=== PATIENT | female | born 1965 | race Caucasian/White ===

== ENCOUNTER 2018-10-23 10:35 | Emergency (ER) | payer OTHER ==
[~2018-10-23] VITALS: Ht 160 cm; Wt 88.6 kg
[2018-10-23] MEDS ORDERED: ATOR1TAB19 PO (10:45)
[2018-10-23] MEDS ORDERED: METF750T PO (10:45)
[2018-10-23] MEDS ORDERED: ENAL20TA PO (10:45)
[2018-10-23] MEDS ORDERED: TOPI25TA10 PO (10:45)
[2018-10-23] MEDS ORDERED: CITA40TA4 PO (10:45)
[2018-10-23] MEDS ORDERED: diphenhydrAMINE INJ 50MG/ML VIAL (J1200) IV STA (11:25)
[2018-10-23] MEDS ORDERED: METOCLOPRAMIDE INJ 10MG/2ML VIAL (J2765) IV ONE (11:30)
[2018-10-23] MEDS ORDERED: KETOROLAC 30 MG/ML VIAL (J1885) IV ONE (11:30)
[2018-10-23] MEDS ORDERED: NS 1,000 ML IV ONE (11:30)
[2018-10-23 11:56] LABS: BASO % 0.3 % (0.0-1.0); EOS # 0.1 10^3/uL (0.0-0.50); EOS % 0.7 % (0.0-3.0); HEMATOCRIT 41.8 % (36.0-47.0); LYMPH # 2.6 10^3/uL (1.5-4.5); LYMPH % 19.7 % (24.0-44.0); MEAN CORPUSCULAR HGB CONC 33.5 g/dl (32.0-36.5); MEAN CORPUSCULAR VOLUME 83.6 fl (80.0-96.0); MONO # 0.9 10^3/uL (0.0-0.8); MONO % 6.8 % (0.0-5.0); NEUTROPHILS # 9.4 10^3/uL (1.8-7.7); NEUTROPHILS % 72.3 % (36.0-66.0); PLATELET COUNT, AUTOMATED 325 10^3/uL (150-450)
[2018-10-23 12:22] LABS: BLOOD UREA NITROGEN 9 MG/DL (7-18); CALCIUM LEVEL 8.5 MG/DL (8.5-10.1); CARBON DIOXIDE LEVEL 28 MEQ/L (21-32); CHLORIDE LEVEL 101 MEQ/L (98-107); GLOMERULAR FILTRATION RATE > 60.0 (>51); GLUCOSE, FASTING 126 MG/DL (70-100); MAGNESIUM LEVEL 2.4 MG/DL (1.8-2.4); POTASSIUM SERUM 4.1 MEQ/L (3.5-5.1); SODIUM LEVEL 132 MEQ/L (136-145)
[2018-10-23 13:32] VITALS: BP 129/70
[2018-10-23] MEDS ORDERED: MAGN250T7 PO (18:13)
[2018-10-24] MEDS ORDERED: ASPI1TAB PO (17:51)
== END 2018-10-23 13:34 | disposition home or self-care (01) ==
LOC: M ED 10:35
DX: R51 Headache (principal); G89.29 Other chronic pain; E11.9 Type 2 diabetes mellitus without complications; F17.210 Nicotine dependence, cigarettes, uncomplicated; Z98.890 Other specified postprocedural states; Z79.899 Other long term (current) drug therapy; Z79.84 Long term (current) use of oral hypoglycemic drugs; Z88.8 Allergy status to other drugs, medicaments and biological substances
CPT/HCPCS: 80048; 83735; 85025; 96374; 96375; 99284; J1200; J1885; J2765

== ENCOUNTER 2018-10-23 15:32 | Inpatient (IN) | payer OTHER ==
[~2018-10-23] VITALS: Ht 162.6 cm; Wt 80.5 kg
[~2018-10-23 15:32] MED LIST: ATOR1TAB19 PO; CITA40TA4 PO; ENAL20TA PO; METF750T PO; TOPI25TA10 PO
[2018-10-23] MEDS ORDERED: NS 1,000 ML IV ONE (16:30)
[2018-10-23 17:04] LABS: BASO # 0.1 10^3/uL (0.0-0.2); BASO % 0.4 % (0.0-1.0); EOS # 0.2 10^3/uL (0.0-0.50); EOS % 1.2 % (0.0-3.0); HEMATOCRIT 41.6 % (36.0-47.0); LYMPH # 3.9 10^3/uL (1.5-4.5); LYMPH % 27.7 % (24.0-44.0); MEAN CORPUSCULAR HEMOGLOBIN 28.6 pg (27.0-33.0); MEAN CORPUSCULAR HGB CONC 33.7 g/dl (32.0-36.5); MEAN CORPUSCULAR VOLUME 84.9 fl (80.0-96.0); MONO # 1.1 10^3/uL (0.0-0.8); MONO % 7.9 % (0.0-5.0); NEUTROPHILS # 8.7 10^3/uL (1.8-7.7); NEUTROPHILS % 62.4 % (36.0-66.0); PLATELET COUNT, AUTOMATED 321 10^3/uL (150-450); WHITE BLOOD COUNT 13.9 10^3/uL (4.0-10.0)
[2018-10-23 17:18] LABS: INR 1.06; PROTHROMBIN TIME 13.9 SECONDS (12.1-14.4)
[2018-10-23 17:19] LABS: PARTIAL THROMBOPLASTIN TIME 29.8 SECONDS (25.4-37.6)
[2018-10-23 17:35] LABS: ALBUMIN 3.8 GM/DL (3.2-5.2); ALT/SGPT 17 U/L (12-78); BILIRUBIN,DIRECT 0.1 MG/DL (0.0-0.2); BILIRUBIN,TOTAL 0.4 MG/DL (0.2-1.0); BLOOD UREA NITROGEN 12 MG/DL (7-18); CALCIUM LEVEL 8.6 MG/DL (8.5-10.1); CARBON DIOXIDE LEVEL 25 MEQ/L (21-32); CHLORIDE LEVEL 103 MEQ/L (98-107); CHOLESTEROL LEVEL 160 MG/DL (<200); CHOLESTEROL RISK RATIO 2.962 (<5); CPK CREATINE PHOSPHOKINASE 66 U/L (26-192); CREATININE FOR GFR 0.71 MG/DL (0.55-1.30); GLOMERULAR FILTRATION RATE > 60.0 (>51); GLUCOSE, FASTING 131 MG/DL (70-100); HDL CHOLESTEROL 54 MG/DL (>40); LDL CHOLESTEROL 63 MG/DL (<100); MB/CK RELATIVE INDEX 1.97 (< OR =4); NON-HDL-C 106 MG/DL; POTASSIUM SERUM 3.9 MEQ/L (3.5-5.1); SODIUM LEVEL 135 MEQ/L (136-145); TRIGLYCERIDES LEVEL 213 MG/DL (<150); TROPONIN I < 0.02 NG/ML (< 0.10)
[2018-10-23] MEDS ORDERED: MAGN250T7 PO (18:13)
[2018-10-23] MEDS ORDERED: ONDANSETRON 4 MG TAB (S0181) PO PRN (19:15)
--- NOTE | 2018-10-23 19:39 | HPEPDOC ---
[facility] Medical History & Physical Date of Admission Oct 23, 2018 History and Physical CHIEF COMPLAINT: [ weakness ] HISTORY OF PRESENT ILLNESS: This is a 53 yo female with pmhx of prediabetes, htn and headache who presented to the ed for left sided weakness . Patient said she usually have headache and was taking ibuprofen in August when the headaches got worse. Her neurologist started her on topamax, which she said wasn't helping. She said her neurologist thinks the severe headaches are due to ibuprofen use. She hasn't taken ibupofen in about 1-2 weeks. Per patient her neurologist has been gradually increasing her topamax dose and it was double ( 200mg) on morning. Later at work she started having right sided weakness with headache. The weakness gradually improved over the next 2 days; however her headaches got progressively worse and today she started having generalized weakness, so her brought her to the ed. He said in the ed she received medicine for the headache and was discharged. When they got home, she started having left sided weakness and he thought she was having a stroke so he brought her back. Patient is also weak, with slow memory, slow speech and mental cloudiness. Of note patient was also taking prednisone taper and her last dose was Wednesday. She was taking it for possible brain inflammation per . She denied fever ,chills, chest pain, sob, photophobia, present headache, nausea vomiting, dizziness or muscles aches . Of note patient has a device in her back that she is not clear if it is metal or not. The surgery was done at [facility] they believe and her neurolo gist (Dr. Pendleton?) has been working on figuring out if it is metal or not so that she can get an MRI. REVIEW OF SYSTEMS: All 14 points ROS is negative except what's stated in HPI PHYSICAL EXAMINATION: GEN: no acute distress, acute delirious ( hypoactive) , does not follow commands well, eyes look sleepy, slow to process info and slow to speak HEENT : no lymphadenopathy, PERRLA , no oropharyngeal erythema or exudates CVS: Normal S1/s2, no murmurs, rubs or gallops, RESP: Lungs are clear to auscultation bilaterally, no crackles, wheezes or rhonchi Abd: soft, nontender, nondistended, + BS MSK: generalized weakness , unable to sit up without assistance and was not able to maintain a seated position Integumentary: no rash or bruises Neuro: AOAx3, left sided pronator drift and left leg weakness (drifted to bed before 5 sec), was difficult to assess cerebellar exam because patient was having difficulty following commands psych: normal mood, good judgement and cooperative PAST MEDICAL HISTORY: as per HPI PAST SURGICAL HISTORY: abd surgery - (for trauma when she was a child) wrist surgery fused vertebrae SOCIAL HISTORY: Tobacco use:[1ppd for 5 yrs ] ETOH: [denied ] Illicit drug use: [denied ] IV drug use: [denied ] FAMILY HISTORY: noncontributory ALLERGIES: Please see below. HOME MEDICATIONS: Please see below. LABORATORY DATA: See below. IMAGING: [ekg wnl, cxr and ct brain negative ] MICROBIOLOGY: Please see below. ASSESSMENT: acute neurologic symptoms - possibly topamax overdose vs cva PLAN: hold topamax f/u topamax level c/w ivf NS at 100cc/hr avoid narcotics neuro consult - Dr. Kong already contacted by ed f/u MRI/MR head and neck f/u echo and carotid doppler fall precaution call poison control who rec supportive care for now and lactic acid level hold metformin hold bp meds dvt ppx full code, from home, no svc Vital Signs Vital Signs Date Time Temp Pulse Resp B/P (MAP) Pulse Ox O2 Delivery O2 Flow Rate FiO2 10/23/18 18:00 78 122/60 (80) 96 Room Air 10/23/18 15:32 98.3 17 Laboratory Data Labs 24H Laboratory Tests 2 10/23/18 16:50: Immature Granulocyte % (Auto) 0.4, White Blood Count 13.9H, Red Blood Count 4.90, Hemoglobin 14.0, Hematocrit 41.6, Mean Corpuscular Volume 84.9, Mean Corpu scular Hemoglobin 28.6, Mean Corpuscular Hemoglobin Concent 33.7, Red Cell Distribution Width 13.7, Platelet Count 321, Neutrophils (%) (Auto) 62.4, Lymphocytes (%) (Auto) 27.7, Monocytes (%) (Auto) 7.9H, Eosinophils (%) (Auto) 1.2, Basophils (%) (Auto) 0.4, Neutrophils # (Auto) 8.7H, Lymphocytes # (Auto) 3.9, Monocytes # (Auto) 1.1H, Eosinophils # (Auto) 0.2, Basophils # (Auto) 0.1, Nucleated Red Blood Cells % (auto) 0.0, Prothrombin Time 13.9, Prothromb Time International Ratio 1.06, Activated Partial Thromboplast Time 29.8, Anion Gap 7L, Glomerular Filtration Rate > 60.0, Calcium Level 8.6, Aspartate Amino Transf (AST/SGOT) 10, Alanine Aminotransferase (ALT/SGPT) 17, Alkaline Phosphatase 92, Total Bilirubin 0.4, Direct Bilirubin 0.1, Total Creatine Kinase 66, Creatine Kinase MB 1.0, Creatine Kinase MB Relative Index 1.97, Troponin I < 0.02, Total Protein 7.0, Albumin 3.8, Albumin/Globulin Ratio 1.19, Triglycerides Level 213H, Total Cholesterol 160, LDL Cholesterol 63, Non-HDL Cholesterol (LDL + VLDL) 106, Total HDL Cholesterol 54, Cholesterol/HDL Ratio 2.962 CBC/BMP Laboratory Tests 10/23/18 16:50 Red Blood Count 4.90, Mean Corpuscular Volume 84.9, Mean Corpuscular Hemoglobin 28.6, Mean Corpuscular Hemoglobin Concent 33.7, Red Cell Distribution Width 13.7 , Neutrophils (%) (Auto) 62.4, Lymphocytes (%) (Auto) 27.7, Monocytes (%) (Auto) 7.9 H, Eosinophils (%) (Auto) 1.2, Basophils (%) (Auto) 0.4, Neutrophils # (Auto) 8.7 H, Lymphocytes # (Auto) 3.9, Monocytes # (Auto) 1.1 H, Eosinophils # (Auto) 0.2, Basophils # (Auto) 0.1 Home Medications Scheduled Atorvastatin Calcium (Atorvastatin Calcium) 10 Mg Tab, 10 MG PO QHS Citalopram Hydrobromide (Citalopram Hydrobromide) 40 Mg Tab, 40 MG PO DAILY Enalapril Maleate (Enalapril Maleate) 20 Mg Tab, 40 MG PO DAILY Magnesium (Magnesium) 250 Mg Tab, 250 MG PO DAILY Metformin Hydrochloride (Metformin HCl ER) 750 Mg Tab, 750 MG PO QHS Topiramate (Topiramate) 25 Mg Tab, 50 MG PO QHS Allergies Coded Allergies: Guaifenesin (Unverified Allergy, Unknown, HIVES, 10/23/18) LINDA MI MD Oct 23, 2018 19:39
--- NOTE | 2018-10-23 19:58 | ECGEPIP ---
Stationary ECG Study [facility] - ED Test Date: 2018-10-23 Pat Name: GEORGES FREIRE Department: Room: - Gender: F Manufacturing Advisor: VIGNESH : [id number] Requested By: LUCI Willard Order Number: [id number] Reading MD: Bruna Gutierrez Measurements Intervals Deep Gap Rate: 76 P: 46 DC: 144 QRS: 1 QRSD: 91 T: 14 QT: 373 QTc: 421 Interpretive Statements SINUS RHYTHM MINIMAL VOLTAGE CRITERIA FOR LVH, CONSIDER NORMAL VARIANT NONSPECIFIC ST T WAVE CHANGES NO OLD ECG FOR COMPARISON Electronically Signed On 10-23-2018 19:58:22 EST by Bruna Gutierrez
[2018-10-23] MEDS ORDERED: ATORVASTATIN 10 MG TAB PO SCH (21:00)
[2018-10-23 21:08] LABS: ETHYL ALCOHOL (ETHANOL) < 0.003 % (0.000-0.010); SALICYLATE LEVEL 3.1 MG/DL (5.0-30.0)
[2018-10-23] MEDS: SENOKOT S TAB PO SCH (23:06)
[2018-10-23] MEDS: HEPARIN SOD (PORCINE) 5000 UNITS/ML VIAL SC SCH (23:07)
[2018-10-23] MEDS: D5W/0.9% SODIUM CHLORIDE 1,000 ML IV SCH (23:15)
[2018-10-24] MEDS: ACETAMINOPHEN TAB 650MG DOSE (2X325MG) PO PRN ×3 (00:51→16:26)
[2018-10-24 04:42] VITALS: BP 132/63
[2018-10-24 05:00] VITALS: BP 133/80
[2018-10-24 05:07] LABS: BASO % 0.3 % (0.0-1.0); EOS # 0.2 10^3/uL (0.0-0.50); EOS % 1.3 % (0.0-3.0); HEMATOCRIT 36.8 % (36.0-47.0); LYMPH # 3.6 10^3/uL (1.5-4.5); LYMPH % 30.2 % (24.0-44.0); MEAN CORPUSCULAR HEMOGLOBIN 27.9 pg (27.0-33.0); MEAN CORPUSCULAR HGB CONC 32.1 g/dl (32.0-36.5); MONO % 8.2 % (0.0-5.0); NEUTROPHILS # 7.1 10^3/uL (1.8-7.7); NEUTROPHILS % 59.6 % (36.0-66.0); PLATELET COUNT, AUTOMATED 291 10^3/uL (150-450); RED BLOOD COUNT 4.23 10^6/uL (4.00-5.40); WHITE BLOOD COUNT 11.9 10^3/uL (4.0-10.0)
[2018-10-24] MEDS: D5W/0.9% SODIUM CHLORIDE 1,000 ML IV SCH (05:11)
[2018-10-24] MEDS: HEPARIN SOD (PORCINE) 5000 UNITS/ML VIAL SC SCH ×3 (05:11→21:09)
[2018-10-24 05:15] LABS: BLOOD UREA NITROGEN 11 MG/DL (7-18); CALCIUM LEVEL 7.7 MG/DL (8.5-10.1); CARBON DIOXIDE LEVEL 26 MEQ/L (21-32); CHLORIDE LEVEL 110 MEQ/L (98-107); CREATININE FOR GFR 0.63 MG/DL (0.55-1.30); GLOMERULAR FILTRATION RATE > 60.0 (>51); GLUCOSE, FASTING 119 MG/DL (70-100); MAGNESIUM LEVEL 2.2 MG/DL (1.8-2.4); POTASSIUM SERUM 4.1 MEQ/L (3.5-5.1); SODIUM LEVEL 140 MEQ/L (136-145)
[2018-10-24 05:33] LABS: HEMOGLOBIN 11.8 g/dl (12.0-15.5)
[2018-10-24] MEDS ORDERED: ISOVUE-370 76% 100ML VIAL (Q9967) As Ordered ONE (06:40)
--- NOTE | 2018-10-24 07:39 | REPVR ---
EXAM: CT Angiography Neck With Contrast EXAM DATE/TIME: 10/24/2018 6:49 AM CLINICAL HISTORY: 53 years old, female; Pain; Headache; Additional info: CVA TECHNIQUE: Axial computed tomographic angiography images of the neck with intravenous contrast using CT angiography protocol. All CT scans at this facility use at least one of these dose optimization techniques: automated exposure control; mA and/or kV adjustment per patient size (includes targeted exams where dose is matched to clinical indication); or iterative reconstruction. Coronal and sagittal reformatted images were created and reviewed. MIP reconstructed images were created and reviewed. CONTRAST: 100 ml of iso 370 administered intravenously. COMPARISON: No relevant prior studies available. FINDINGS: VASCULATURE: Right common carotid artery: Normal. No significant stenosis. No dissection or occlusion. Right internal carotid artery: Normal. Extracranial segment is patent with no significant stenosis. No dissection or occlusion. Right external carotid artery: Normal. No occlusion or significant stenosis. Right vertebral artery: Normal. No significant stenosis. No dissection or occlusion. Left common carotid artery: Normal. No significant stenosis. No dissection or occlusion. Left internal carotid artery: Normal. Extracranial segment is patent with no significant stenosis. No dissection or occlusion. Left external carotid artery: Normal. No occlusion or significant stenosis. Left vertebral artery: Normal. No significant stenosis. No dissection or occlusion. NECK: Bones/joints: No acute fracture. Soft tissues: Normal. No significant soft tissue swelling. IMPRESSION: No acute findings. COMMENT: Reference per NASCET criteria for degree of stenosis: Mild: <50% stenosis. Moderate: 50-69% stenosis. Severe: 70-94% stenosis. Near occlusion: 95-99% stenosis. The Electronically signed by: Feliciano Su On 10/24/2018 07:39:16 AM
--- NOTE | 2018-10-24 07:48 | REPVR ---
EXAM: CT Angiography Head With Contrast EXAM DATE/TIME: 10/24/2018 6:49 AM CLINICAL HISTORY: 53 years old, female; Pain; Headache; Additional info: CVA TECHNIQUE: Axial computed tomographic angiography images of the head with intravenous contrast using CT angiography protocol. All CT scans at this facility use at least one of these dose optimization techniques: automated exposure control; mA and/or kV adjustment per patient size (includes targeted exams where dose is matched to clinical indication); or iterative reconstruction. Coronal and sagittal reformatted images were created and reviewed. MIP and 3D reconstructed images were created and reviewed. CONTRAST: 100 ml of iso 370 administered intravenously. COMPARISON: CT Head without contrast 10/23/2018 3:49 PM FINDINGS: Right internal carotid artery: Unremarkable. Intracranial segment is patent with no significant stenosis. No aneurysm. Right anterior cerebral artery: Unremarkable. No occlusion or significant stenosis. No aneurysm. Right middle cerebral artery: Unremarkable. No occlusion or significant stenosis. No aneurysm. Right posterior cerebral artery: Unremarkable. No occlusion or significant stenosis. No aneurysm. Right vertebral artery: Unremarkable. No occlusion or significant stenosis. No aneurysm. Left internal carotid artery: Unremarkable. Intracranial segment is patent with no significant stenosis. No aneurysm. Left anterior cerebral artery: There is diminutive flow in the A1 segment of the left MARVA. There is flow in the distal branches of the left MARVA. Left middle cerebral artery: The M1 segment of the left MCA is irregular. Left posterior cerebral artery: Unremarkable. No occlusion or significant stenosis. No aneurysm. Left vertebral artery: Unremarkable. No occlusion or significant stenosis. No aneurysm. Basilar artery: Unremarkable. No occlusion or significant stenosis. No aneurysm. IMPRESSION: Diminutive flow in the A1 segment of the left MARVA which could be congenital or due to occlusive disease. Flow is seen in the distal branches. Irregular beaded appearance of the M1 segment of the left MCA. The differential diagnosis of beaded appearance includes vasculitis, reversible cerebral vasoconstriction syndrome (RCVS), fibromuscular dysplasia and polyarthritis nodosa. Correlation with MR angiogram or cerebral DSA may be helpful. Electronically signed by: Feliciano Su On 10/24/2018 07:48:00 AM
[2018-10-24 08:00] VITALS: BP 135/77
[2018-10-24 08:19] LABS: AMPHETAMINES LEVEL URINE NEGATIVE (NEGATIVE); BARBITURATES URINE NEGATIVE (NEGATIVE); BENZODIAZEPINES URINE NEGATIVE (NEGATIVE); CANNABINOIDS URINE NEGATIVE (NEGATIVE); COCAINE METABOLITE URINE NEGATIVE (NEGATIVE); METHADONE URINE NEGATIVE (NEGATIVE); OPIATES URINE NEGATIVE (NEGATIVE); PHENCYCLIDINE URINE NEGATIVE (NEGATIVE)
[2018-10-24 08:51] LABS: CK-MB VALUE MASS < 1.0 NG/ML (<3.6); CPK CREATINE PHOSPHOKINASE 39 U/L (26-192); MB/CK RELATIVE INDEX 2.56 (< OR =4); TROPONIN I < 0.02 NG/ML (< 0.10)
[2018-10-24] MEDS: ASPIRIN 81 MG CHEW TABLET PO SCH (09:21)
[2018-10-24] MEDS: SENOKOT S TAB PO SCH ×2 (09:22→21:08)
--- NOTE | 2018-10-24 10:20 | REP ---
CT BRAIN WITHOUT CONTRAST: CT brain performed without IV contrast. There is minor atrophy. There is no midline shift or mass effect. Solitario-white differentiation is well maintained. There is no acute hemorrhage. There is no extra-axial fluid collection. Bone window examination is unremarkable. IMPRESSION: Negative noncontrast CT brain. Electronically Signed by Curtis Solitario MD 10/24/2018 10:42 P
--- NOTE | 2018-10-24 10:26 | REP ---
CHEST: Single view. There is no evidence of acute infiltrate. No pleural effusion is seen. The heart is normal in size. The mediastinal silhouette is unremarkable. The visualized osseous structures are intact. IMPRESSION: No acute pulmonary disease. Electronically Signed by Curtis Solitario MD 10/24/2018 10:48 P
[2018-10-24 12:00] VITALS: BP 153/97
[2018-10-24 16:00] VITALS: BP 161/92
[2018-10-24] MEDS ORDERED: methylPREDNISolone INJ 125 MG/2 ML VIAL (J2930) IV ONE (16:45)
[2018-10-24] MEDS ORDERED: methylPREDNISolone 1,000 MG, VIAL MATE ADAPTER 1 EACH in D5W 250 ML IV ONE (17:00)
--- NOTE | 2018-10-24 17:01 | REP ---
CT Head without contrast HISTORY: Focal deficit COMPARISON: 10/23/2018 A small area of decreased attenuation is present in the medial left parietal lobe. This represents an acute infarction. There is no intraparenchymal hemorrhage, mass or midline shift. The ventricular system is normal in appearance. There is no extra cerebral collection. There is no fracture. The visualized sinuses are clear. IMPRESSION: Small acute left parietal lobe infarction. Electronically Signed by Vamshi Franco MD 10/24/2018 04:53 P
--- NOTE | 2018-10-24 17:04 | DS.PDOC ---
Discharge Summary General Date of Admission Oct 23, 2018 at 19:01 Date of Discharge to be determined Specialist/Consultants Involve Dr. Bundy, neurology Discharge Summary PROCEDURES PERFORMED DURING STAY: [None]. DISCHARGE DIAGNOSES: 1. intermittent focal neurologic deficits 2. speech deficits 3. altered mental status SECONDARY DIAGNOSES 1. Prediabetes 2. HTN 3. Lower back pain s/p surgical intervention - [facility] COMPLICATIONS/CHIEF COMPLAINT: Generalized Weakness,Headache,Tia. HISTORY OF PRESENT ILLNESS: This is a 53 yo female with PMHx of prediabetes, HTN, headache and lower back pain s/p surgical intervention, who presented to the ED for left sided weakness. Her family at bedside state that she had been having intermittent focal deficits for the past 4-8 weeks, that have been worsening, initially starting with pins/needles and numbness in her extremities. Patient states she has been having headaches, and was taking ibuprofen in August when the headaches got worse. She was started on Topamax on 10/13/18, which she said still wasn't helping. Per patient her neurologist was gradually increasing her topamax dose and it was doubled (200mg) on 10/20/18. Around 10/21/18 she started having right sided weakness with headache. The weakness gradually improved over the next 2 days; however her headaches got progressively worse and today she started having generalized weakness, so her brought her to the ED. She was given Toradol 30mg IV, reglan 10mg IV, Benadryl 25mgIV and a 1L bolus of NS and discharged home. When they got home, she started having left sided weakness and he thought she was having a stroke so he brought her back. Patient complained of weakness, lethargy and difficulty with speech. Of note patient was also taking prednisone taper and her last dose was 10/20/18. She was taking it for possible brain inflammation per . She denied fever ,chills, chest pain, sob, photophobia, present headache, nausea vomiting, dizziness or muscles aches. HOSPITAL COURSE: Hospital day one, patient noted with very flat affect. She answers questions with one word answers with no additional information. She is unable to read a clock. Patient's family (, son) state this is a major change in her mentation. She was found to be a poor historian. states that she was seen at [facility] 3-5 days ago for weakness and focal deficits. Neurology was consulted for further assistance. CT angiography of the head sh owed irregular beaded appearance of the M1 segment of the left MCA, with differential including vasculitis. Recommendations by neurology for transfer for further diagnostics with conventional angiogram. [facility] was contacted, with no bed availability. [facility] contacted with no bed availability. [facility] accepted transfer to stroke unit, accepting MD Dr. Mirella Abdul. DISCHARGE MEDICATIONS: Please see below. ALLERGIES: Please see below. PHYSICAL EXAMINATION ON DISCHARGE: VITAL SIGNS: Please see below. GENERAL: NAD, sitting comfortably in chair, flat affect HEENT: NC/AT, EOMI, PERRL, edentulous NECK: supple CARDIOVASCULAR EXAMINATION: +S1S2, RRR RESPIRATORY EXAMINATION: CTA B/L ABDOMINAL EXAMINATION: soft, NT, +BS EXTREMITIES: no edema NEUROLOGICAL EXAMINATION: strength 5/5 throughout, sensation not clear if intact - patient confabulates answers PSYCHIATRIC EXAMINATION: flat affect, answers questions with one word answer, offers no additional information LABORATORY DATA: Please see below. ACTIVITY: [As tolerated]. DIET: carb consiste, 2 gram sodium DISCHARGE PLAN: Transfer to [facility] DISPOSITION: . ITEMS TO FOLLOWUP ON ON OUTPATIENT: 1. Further direction as per receiving facility. DISCHARGE CONDITION: [Stable]. TIME SPENT ON DISCHARGE: Greater than 30 minutes. ADDENDUM: [facility] initially contacted at 3pm and then again at 3:40pm for transfer, but was informed of no bed availability. [facility] returned call at 9pm as there was bed availability. Discussed case with Dr. Fischer, with recommendations including lumbar puncture and that transfer was not necessary. Vital Signs/I&Os Vital Signs Date Time Temp Pulse Resp B/P (MAP) Pulse Ox O2 Delivery O2 Flow Rate FiO2 10/24/18 05:00 69 18 133/80 (97) 96 10/24/18 04:42 97.5 10/23/18 18:00 Room Air I&O- Last 24 Hours up to 6 AM 10/24/18 06:00 Intake Total 1100 ml Output Total 0 ml Balance 1100 ml Laboratory Data Labs 24H Laboratory Tests 2 10/23/18 16:50: Immature Granulocyte % (Auto) 0.4, White Blood Count 13.9H, Red Blood Count 4.90, Hemoglobin 14.0, Hematocrit 41.6, Mean Corpuscular Volume 84.9, Mean Corpuscular Hemoglobin 28.6, Mean Corpuscular Hemoglobin Concent 33.7, Red Cell Distribution Width 13.7, Platelet Count 321, Neutrophils (%) (Auto) 62.4, Lymphocytes (%) (Auto) 27.7, Monocytes (%) (Auto) 7.9H, Eosinophils (%) (Auto) 1.2, Basophils (%) (Auto) 0.4, Neutrophils # (Auto) 8.7H, Lymphocytes # (Auto) 3.9, Monocytes # (Auto) 1.1H, Eosinophils # (Auto) 0.2, Basophils # (Auto) 0.1, Nucleated Red Blood Cells % (auto) 0.0, Prothrombin Time 13.9, Prothromb Time International Ratio 1.06, Activated Partial Thromboplast Time 29.8, Anion Gap 7L, Glomerular Filtration Rate > 60.0, Calcium Level 8.6, Aspartate Amino Transf (AST/SGOT) 10, Alanine Aminotransferase (ALT/SGPT) 17, Alkaline Phosphatase 92, Total Bilirubin 0.4, Direct Bilirubin 0.1, Total Creatine Kinase 66, Creatine Kinase MB 1.0, Creatine Kinase MB Relative Index 1.97, Troponin I < 0.02, Total Protein 7.0, Albumin 3.8, Albumin/Globulin Ratio 1.19, Triglycerides Level 213H, Total Cholesterol 160, LDL Cholesterol 63, Non-HDL Cholesterol (LDL + VLDL) 106, Total HDL Cholesterol 54, Cholesterol/HDL Ratio 2.962 10/23/18 18:25: Salicylates Level 3.1L, Acetaminophen Level 2.0L, Ethyl Alcohol Level < 0.003 10/23/18 18:31: 10/23/18 19:53: Lactic Acid Level 0.8 10/24/18 04:44: Immature Granulocyte % (Auto) 0.4, White Blood Count 11.9H, Red Blood Count 4.23, Hemoglobin 11.8#L, Hematocrit 36.8, Mean Corpuscular Volume 87.0, Mean Corpuscular Hemoglobin 27.9, Mean Corpuscular Hemoglobin Concent 32.1, Red Cell Distribution Width 14.2, Platelet Count 291, Neutrophils (%) (Auto) 59.6, Lymphocytes (%) (Auto) 30.2, Monocytes (%) (Auto) 8.2H, Eosinophils (%) (Auto) 1.3, Basophils (%) (Auto) 0.3, Neutrophils # (Auto) 7.1, Lymphocytes # (Auto) 3.6, Monocytes # (Auto) 1.0H, Eosinophils # (Auto) 0.2, Basophils # (Auto) 0.0, Nucleated Red Blood Cells % (auto) 0.0, Anion Gap 4L, Glomerular Filtration Rate > 60.0, Blood Urea Nitrogen 11, Creatinine 0.63, Sodium Level 140, Potassium Level 4.1, Chloride Level 110H, Carbon Dioxide Level 26, Calcium Level 7.7L, Total Creatine Kinase 39, Magnesium Level 2.2, Creatine Kinase MB < 1.0, Creatine Kinase MB Relative Index 2.56, Troponin I < 0.02 10/24/18 07:50: Urine Amphetamines Screen NEGATIVE, Urine Benzodiazepines Screen NEGATIVE, Urine Opiates Screen NEGATIVE, Urine Methadone Screen NEGATIVE, Urine Barbiturates Screen NEGATIVE, Urine Phencyclidine Screen NEGATIVE, Urine Cocaine Metabolite Screen NEGATIVE, Urine Cannabinoids Screen NEGATIVE CBC/BMP Laboratory Tests 10/23/18 16:50 Red Blood Count 4.90, Mean Corpuscular Volume 84.9, Mean Corpuscular Hemoglobin 28.6, Mean Corpuscular Hemoglobin Concent 33.7, Red Cell Distribution Width 13.7, Neutrophils (%) (Auto) 62.4, Lymphocytes (%) (Auto) 27.7, Monocytes (%) (Auto) 7.9 H, Eosinophils (%) (Auto) 1.2, Basophils (%) (Auto) 0.4, Neutrophils # (Auto) 8.7 H, Lymphocytes # (Auto) 3.9, Monocytes # (Auto) 1.1 H, Eosinophils # (Auto) 0.2, Basophils # (Auto) 0.1 10/24/18 04:44 Red Blood Count 4.23, Mean Corpuscular Volume 87.0, Mean Corpuscular Hemoglobin 27.9, Mean Corpuscular Hemoglobin Concent 32.1, Red Cell Distribution Width 14.2, Neutrophils (%) (Auto) 59.6, Lymphocytes (%) (Auto) 30.2, Monocytes (%) (Auto) 8.2 H, Eosinophils (%) (Auto) 1.3, Basophils (%) (Auto) 0.3, Neutrophils # (Auto) 7.1, Lymphocytes # (Auto) 3.6, Monocytes # (Auto) 1.0 H, Eosinophils # (Auto) 0.2, Basophils # (Auto) 0.0, Calcium Level 7.7 L, Total Creatine Kinase 39 Discharge Medications Scheduled Aspirin (Aspirin 81) 81 Mg Tab, 1 TAB PO DAILY for pain Atorvastatin Calcium (Atorvastatin Calcium) 10 Mg Tab, 10 MG PO QHS, (Reported) Citalopram Hydrobromide (Citalopram Hydrobromide) 40 Mg Tab, 40 MG PO DAILY, (Reported) Enalapril Maleate (Enalapril Maleate) 20 Mg Tab, 40 MG PO DAILY, (Reported) Magnesium (Magnesium) 250 Mg Tab, 250 MG PO DAILY, (Reported) Metformin Hydrochloride (Metformin HCl ER) 750 Mg Tab, 750 MG PO QHS, (Reported) Topiramate (Topiramate) 25 Mg Tab, 50 MG PO QHS, (Reported) Allergies Coded Allergies: Guaifenesin (Unverified Allergy, Unknown, HIVES, 10/23/18) CASTRO HARTMAN MD Oct 24, 2018 17:04
[2018-10-24 17:42] LABS: C REACTIVE PROTEIN QUANTITATIV 1.39 MG/DL (0.00-0.30)
[2018-10-24] MEDS ORDERED: ASPI1TAB PO (17:51)
[2018-10-24 18:15] LABS: ERYTHROCYTE SEDIMENTATION RATE 12 mm/hr (0-30)
[2018-10-24 18:23] LABS: LDH LACTATE DEHYDROGENASE 127 U/L (84-246)
[2018-10-24 20:00] VITALS: BP 147/75
[2018-10-24] MEDS: ATORVASTATIN 20 MG TAB PO SCH (21:09)
[2018-10-25] VITALS: BP 132/71
[2018-10-25 04:00] VITALS: BP 145/65
[2018-10-25 05:08] LABS: HEMATOCRIT 39.6 % (36.0-47.0); HEMOGLOBIN 13.2 g/dl (12.0-15.5); LYMPH # 0.7 10^3/uL (1.5-4.5); LYMPH % 13.4 % (24.0-44.0); MEAN CORPUSCULAR HEMOGLOBIN 28.6 pg (27.0-33.0); MEAN CORPUSCULAR HGB CONC 33.3 g/dl (32.0-36.5); MEAN CORPUSCULAR VOLUME 85.9 fl (80.0-96.0); MONO % 0.4 % (0.0-5.0); NEUTROPHILS # 4.5 10^3/uL (1.8-7.7); PLATELET COUNT, AUTOMATED 288 10^3/uL (150-450); RED BLOOD COUNT 4.61 10^6/uL (4.00-5.40); WHITE BLOOD COUNT 5.3 10^3/uL (4.0-10.0)
[2018-10-25] MEDS: HEPARIN SOD (PORCINE) 5000 UNITS/ML VIAL SC SCH ×3 (05:16→21:06)
[2018-10-25 05:22] LABS: BLOOD UREA NITROGEN 8 MG/DL (7-18); CALCIUM LEVEL 8.5 MG/DL (8.5-10.1); CARBON DIOXIDE LEVEL 26 MEQ/L (21-32); CHLORIDE LEVEL 106 MEQ/L (98-107); CREATININE FOR GFR 0.58 MG/DL (0.55-1.30); GLOMERULAR FILTRATION RATE > 60.0 (>51); GLUCOSE, FASTING 207 MG/DL (70-100); MAGNESIUM LEVEL 1.9 MG/DL (1.8-2.4); POTASSIUM SERUM 4.1 MEQ/L (3.5-5.1); SODIUM LEVEL 138 MEQ/L (136-145)
[2018-10-25 07:46] LABS: CRYOGLOBULINS NEGATIVE (NEGATIVE)
[2018-10-25 07:48] VITALS: BP 158/89
[2018-10-25] MEDS ORDERED: methylPREDNISolone 1,000 MG, VIAL MATE ADAPTER 1 EACH in D5W 250 ML IV ONE (09:00)
[2018-10-25] MEDS: SENOKOT S TAB PO SCH ×2 (09:00→20:18)
[2018-10-25] MEDS: ASPIRIN 81 MG CHEW TABLET PO SCH (10:17)
--- NOTE | 2018-10-25 11:30 | CR ---
DATE OF CONSULTATION: REASON FOR CONSULTATION: Altered mental status, possible stroke. The patient is a 53-year-old female with past medical history significant for hypertension, prediabetes, persistent headache, presenting to the emergency department for left-sided weakness. The patient had an initial head CT, which was negative, CT angiogram of the head was suspicious for left MCA beaded appearance, possible vasculitis. Cerebral angiogram was recommended. The patient was then attempted to be transferred to a local hospital for further care. The patient had a transient episode on 10/24/2018 at around 6:20 a.m. with difficulty speaking. The patient had a head CT repeated in the evening. The patient's head CT then showed left parietal acute ischemia. The patient is symptomatic with left upper extremity ataxia as well as hyperreflexia of the right upper and lower extremity. 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 Solu-Medrol 1 gram was provided. Vasculitic workup ESR was pending. ESR was found to be 11. The patient was recommended by [facility] for further receive the Solu-Medrol. The patient was to be transferred pending in bed. Dr. Margarito Fischer from [facility] recommended spinal tap to be completed for further evaluation for cause of stroke. The patient will remain on 81 mg aspirin, which was started after this admission. She will remain on statin therapy and systolic blood pressures will remain 140-180 for the next 72 hours. She will continue Solu-Medrol 1 gram daily for the next 5 days. The patient would ideally need a cerebral angiogram to confirm the presence of OPERATIONS GENERAL AGENT vasculitis. REVIEW OF SYSTEMS: 14-point review of systems is negative except as per HPI. The patient states that the language dysfunction has resolved. She notes that she continues to have difficulty using her left arm. PAST MEDICAL HISTORY: As per HPI. SOCIAL HISTORY: The patient smokes one pack of tobacco per day. She denies use of any alcohol, illicit drugs or IV drug use. PAST SURGICAL HISTORY Abdominal surgery. Wrist surgery. Fused vertebrae. The patient has a metallic device that prevents her from having 3 Georgina MRI scans FAMILY HISTORY: Noncontributory. ALLERGIES: 1. GUAIFENESIN. HOME MEDICATIONS: - atorvastatin 10 mg daily - citalopram 40 mg daily - enalapril 40 mg p.o. daily - magnesium 250 mg p.o. daily - metformin HCL 750 mg p.o. q.h.s. - topiramate 50 mg p.o. q.h.s. PHYSICAL EXAMINATION: Blood pressure is 132/63, pulse rate 70, respiratory rate is 18, temperature is 97.5 degrees Fahrenheit, oxygenation 95% on room air. The patient is awake, alert, oriented to person, place and time. Speech, language, comprehension, and repetition are intact without his dysarthria or aphasia presently. Sensation in V1, V2, V3 is intact to light touch. No facial asymmetry to activation. Palate elevates symmetrically. Tongue is midline. No weakness of sternocleidomastoids bilaterally. Hearing is subjectively equal to finger rub. Pronator drift is present on the left upper extremity. Strength testing reveals weakness in the left triceps. The patient has normal strength throughout the rest the body. The patient has hyperreflexia noted in the right upper and lower extremities, possible positive Babinski sign on the right, absent on the left. Sensory is intact to light touch in all four extremities. Coordination reveals mild ataxia [id number] of the left upper extremity. Gait deferred. ASSESSMENT: 53-year-old female with stroke, risk factors including prediabetes, hypertension, tobacco abuse with new findings of stroke at the left MCA superior distribution, left parietal lobe affected with symptoms of left upper extremity weakness as well. MRI would be ideal although the patient has hardware which is not compatible 3T MRI. 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 Recommendation by reading radiologist for conventional cerebral angiogram. The patient is to be transferred for a higher level of care to receive cerebral angiogram. Outside provider from [facility] neurological team has recommended IV Solu-Medrol 1 gram. The patient was recommended by Dr. Margarito Fischer at [facility] to consider doing a spinal tap first before concluding the diagnosis of vasculitis. If the patient cannot be transferred, consider MR angiogram to confirm vasculitic abnormalities. Continue aspirin 81 mg daily. Continue systolic blood 140-180 for the next 72 hours. Physical therapy/occupational therapy (PT/OT). Continue telemetry monitoring. Obtain echocardiogram. Complete vasculitic hypercoagulable workup. Complete lumbar puncture as per Dr. Fischer's recommendation from [facility]. [facility]
--- NOTE | 2018-10-25 12:19 | REP ---
CT Head without contrast HISTORY: Focal deficit COMPARISON: 10/24/2018 A small area of decreased attenuation is present in the medial left parietal lobe. This represents an acute infarction. There is no intraparenchymal hemorrhage, mass or midline shift. The ventricular system is normal in appearance. There is no extra cerebral collection. There is no fracture. The visualized sinuses are clear. IMPRESSION: Small acute left parietal lobe infarction unchanged compared to the previous study. Electronically Signed by Vamshi Franco MD 10/25/2018 12:11 P
[2018-10-25 12:35] VITALS: BP 183/86
--- NOTE | 2018-10-25 14:39 | ECHO ---
DATE OF PROCEDURE: 10/24/2018 AGE: 53 GENDER: Female. Height 64 inches Weight 178 pounds Body surface area 1.87 meters squared Location: Inpatient, intensive care unit (ICU) room 3205 REFERRING PHYSICIAN: Dr. Cole INDICATION: Transient ischemic attack -- question cardiac source. MEASUREMENTS: 2-D measurements: RV - 3.7 cm LV - 5.0 cm Septum 1.1 cm Posterior wall 1.1 cm Aortic root 3.9 cm LA - 3.7 cm Left ventricular ejection fraction: 70% DOPPLER MEASUREMENTS: AV - 2.0 meters per second LVOT - 1.28 meters per second LVOT diameter 1.9 cm MV E: 99, A: 116, E:A ratio 0.9 Early mitral deceleration time 261 milliseconds E/E prime ratio 14.8 PCWP 15.2 mmHg PV - 0.8 meters per second Pulmonary artery acceleration time 130 milliseconds RVSP 42 mmHg IVC - 1.3 cm COMMENTS: Normal sinus rhythm without intraventricular conduction disturbance. M-mode and two-dimensional echocardiography was performed with pulsed, continuous wave, color flow and tissue Doppler studies. Normal left ventricular size, wall thickness and hyperkinetic wall motion. Left atrium upper limits of normal with Doppler evidence of an impairment of LV diastolic function and current estimated mean left atrial pressure upper limits of normal to slightly increased. Normal right heart chamber sizes and motion with Doppler evidence of mild - moderate pulmonary hypertension. Normal IVC size and collapse against an elevated central venous pressure at this time. Normal appearing and functioning valvular structures with trace aortic and very mild mitral insufficiency. From the subcostal four-chamber projection, we could not rule out a small patent foremen ovale with certainty. If a cardiac source of embolic material is seriously suspect in this patient, would strongly recommend a transesophageal echocardiogram.
[2018-10-25 14:58] LABS: TOPIRAMATE LEVEL 1.7 ug/mL (2.0-25.0)
[2018-10-25 16:00] VITALS: BP 160/72
--- NOTE | 2018-10-25 17:38 | IPNPDOC ---
Date Seen I spoke to Dr. Edgardo Galvan, Stroke Neurologist at [facility] after receiving a call from the transfer center at [facility]. Dr. Galvan recommended that the patient would not further benefit from having a conventional cerebral angiogram. He states that it has a sensitivity of 50% and a negative or positive finding would not add any value in changing management. He did however recommend that the patient have a lumbar puncture. He stated that if the spinal tap does represent inflammation then a diagnosis of AUTOPSY ASSISTANT vasculitis can be made. If that is the case then he recommended to have Rheumatology involved to manage immunosuppression treatment. He also stated that if the spinal tap is negative for any inflammation then the patient wont have a diagnosis of AUTOPSY ASSISTANT vasculitis and stop steroid treatment. At the same time, ongoing work up for cause of stroke is pending including searching for cardioembolic causes. Progress Note SUBJECTIVE: Patient is a -year-old [RACE] [GENDER] with OBJECTIVE PHYSICAL EXAMINATION: VITAL SIGNS: Please see below. GENERAL: HEENT: CARDIOVASCULAR: . RESPIRATORY: . ABDOMINAL: EXTREMITIES: NEUROLOGICAL: PSYCHOLOGICAL: LABORATORY DATA, IMAGING STUDIES, MICROBIOLOGY: Please see below. Echocardiogram: . DVT prophylaxis ordered?: ASSESSMENT AND PLAN: This is a -year-old [RACE] [GENDER] with . PROBLEMS: 1. : . 2. : . 3. : . DISPOSITION: . VS, I&O, [facility]H, [facility] Vital Signs/I&O Vital Signs Date Time Temp Pulse Resp B/P (MAP) Pulse Ox O2 Delivery O2 Flow Rate FiO2 10/25/18 16:00 97.7 79 18 160/72 (101) 100 10/23/18 18:00 Room Air I&O- Last 24 Hours up to 6 AM 10/25/18 05:59 Intake Total 1456 ml Output Total 1500 ml Balance -44 ml Laboratory Data 24H LABS Laboratory Tests 2 10/24/18 17:46: Erythrocyte Sedimentation Rate 11, Lactate Dehydrogenase 127, C-Reactive Protein, Quantitative 1.31H, Serum Cryoglobulins NEGATIVE 10/24/18 18:01: 10/25/18 04:43: Immature Granulocyte % (Auto) 0.2, White Blood Count 5.3, Red Blood Count 4.61, Hemoglobin 13.2, Hematocrit 39.6, Mean Corpuscular Volume 85.9, Mean Corpuscular Hemoglobin 28.6, Mean Corpuscular Hemoglobin Concent 33.3, Red Cell Distribution Width 13.7, Platelet Count 288, Neutrophils (%) (Auto) 86.0H, Lymphocytes (%) (Auto) 13.4L, Monocytes (%) (Auto) 0.4, Eosinophils (%) (Auto) 0.0, Basophils (%) (Auto) 0.0, Neutrophils # (Auto) 4.5, Lymphocytes # (Auto) 0.7L, Monocytes # (Auto) 0.0, Eosinophils # (Auto) 0.0, Basophils # (Auto) 0.0, Nucleated Red Blood Cells % (auto) 0.0, Anion Gap 6L, Glomerular Filtration Rate > 60.0, Blood Urea Nitrogen 8, Creatinine 0.58, Sodium Level 138, Potassium Level 4.1, Chloride Level 106, Carbon Dioxide Level 26, Calcium Level 8.5, Magnesium Level 1.9 CBC/BMP Laboratory Tests 10/25/18 04:43 Red Blood Count 4.61, Mean Corpuscular Volume 85.9, Mean Corpuscular Hemoglobin 28.6, Mean Corpuscular Hemoglobin Concent 33.3, Red Cell Distribution Width 13.7, Neutrophils (%) (Auto) 86.0 H, Lymphocytes (%) (Auto) 13.4 L, Monocytes (%) (Auto) 0.4, Eosinophils (%) (Auto) 0.0, Basophils (%) (Auto) 0.0, Neutrophils # (Auto) 4.5, Lymphocytes # (Auto) 0.7 L, Monocytes # (Auto) 0.0, Eosinophils # (Auto) 0.0, Basophils # (Auto) 0.0, Calcium Level 8.5 POLY DE LOS SANTOS MD Oct 25, 2018 17:38
[2018-10-25 20:00] VITALS: BP 157/84
[2018-10-25] MEDS: ATORVASTATIN 20 MG TAB PO SCH (20:19)
--- NOTE | 2018-10-25 21:34 | IPNPDOC ---
Text Note Date of Service The patient was seen on 10/25/18. NOTE S: Pt examined at bedside with and family friend in room. She is feeling better today, more conversant and noting more mobility on left side of body. states "she immediately got better after the steroids, and I can tell it's effects are wearing off." Pt was accepted for transferr to [facility] yesterday evening, but per reports, no bed is available. Family has been updated regarding the current labs and imaging results and plan of care. Denies f/c, blurred vision, eye/ear pain, ARCHER, n/v, slurred speech, cp, sob, dizziness, paresthesia PE: General: NAD, A&Ox3, fully conversant, resting comfy in bed HEENT: NCAT, PERRLA, EOMI, supple neck, moist mucous memb Cardiac: RRR, normal S1S2 Pulm: CTAB, equal chest rise Abd: soft, NT, ND, normoactive bs Neuro: no facial droop or tongue deviation, no ptosis, no tremor or fasciculations. 5/5 strength in b/l LE and rt UE, 4/5 in LUE. Sensation to soft and sharp touch intact throughout. No facial asymmetry. 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 Toney's DC Summary from 10/24/18. D/C has been delayed as we are currently awaiting a bed, but have an accepting physician at [facility]. Appreciate Neurology input. Per recommendation, hypercoagulable w/u pending, and pt will be given 1g IV Solumedrol. Echo unremarkable for acute concern-will consider obtaining 2D echo. Continue neurochecks and possible LP and repeat head CT today. Per discussion with remaining team, pt will benefit from conventional cerebral angiogram, which we do not have available here. Continue awaiting for open bed. VS,Fishbone, I+O VS, Fishbone, I+O Laboratory Tests 10/25/18 04:43 Red Blood Count 4.61, Mean Corpuscular Volume 85.9, Mean Corpuscular Hemoglobin 28.6, Mean Corpuscular Hemoglobin Concent 33.3, Red Cell Distribution Width 13.7, Neutrophils (%) (Auto) 86.0 H, Lymphocytes (%) (Auto) 13.4 L, Monocytes (%) (Auto) 0.4, Eosinophils (%) (Auto) 0.0, Basophils (%) (Auto) 0.0, Neutrophils # (Auto) 4.5, Lymphocytes # (Auto) 0.7 L, Monocytes # (Auto) 0.0, Eosinophils # (Auto) 0.0, Basophils # (Auto) 0.0, Calcium Level 8.5 Vital Signs Date Time Temp Pulse Resp B/P (MAP) Pulse Ox O2 Delivery O2 Flow Rate FiO2 10/25/18 20:00 97.2 69 16 157/84 (108) 98 10/23/18 18:00 Room Air I&O- Last 24 Hours up to 6 AM 10/25/18 06:00 Intake Total 1356 ml Output Total 1500 ml Balance -144 ml GME ATTESTATION GME ATTESTATION My faculty preceptor for this patient encounter was physically present during the encounter and was fully available. All aspects of the patient interview, examination, medical decision making process, and medical care plan development were reviewed and approved by the faculty preceptor. The faculty preceptor is aware and concurs with the plan as stated in the body of this note and will attest to such by his/her cosignature. LINDA MENENDEZ DO Oct 25, 2018 21:34
[2018-10-26] VITALS (8 sets, daily range): BP systolic 132–186; BP diastolic 70–84
[2018-10-26 04:34] LABS: BASO % 0.1 % (0.0-1.0); HEMATOCRIT 37.1 % (36.0-47.0); HEMOGLOBIN 12.6 g/dl (12.0-15.5); LYMPH # 1.4 10^3/uL (1.5-4.5); LYMPH % 15.2 % (24.0-44.0); MEAN CORPUSCULAR HEMOGLOBIN 28.1 pg (27.0-33.0); MEAN CORPUSCULAR VOLUME 82.6 fl (80.0-96.0); MONO # 0.8 10^3/uL (0.0-0.8); MONO % 8.9 % (0.0-5.0); NEUTROPHILS % 75.5 % (36.0-66.0); PLATELET COUNT, AUTOMATED 320 10^3/uL (150-450); RED BLOOD COUNT 4.49 10^6/uL (4.00-5.40); WHITE BLOOD COUNT 9.3 10^3/uL (4.0-10.0)
[2018-10-26 05:17] LABS: BLOOD UREA NITROGEN 13 MG/DL (7-18); CALCIUM LEVEL 8.7 MG/DL (8.5-10.1); CARBON DIOXIDE LEVEL 29 MEQ/L (21-32); CHLORIDE LEVEL 105 MEQ/L (98-107); CREATININE FOR GFR 0.61 MG/DL (0.55-1.30); GLOMERULAR FILTRATION RATE > 60.0 (>51); GLUCOSE, FASTING 159 MG/DL (70-100); MAGNESIUM LEVEL 2.1 MG/DL (1.8-2.4); POTASSIUM SERUM 3.5 MEQ/L (3.5-5.1); SODIUM LEVEL 142 MEQ/L (136-145)
[2018-10-26] MEDS: HEPARIN SOD (PORCINE) 5000 UNITS/ML VIAL SC SCH ×3 (05:37→21:02)
[2018-10-26 08:33] LABS: C REACTIVE PROTEIN QUANTITATIV 0.74 MG/DL (0.00-0.30)
[2018-10-26] MEDS: ASPIRIN 81 MG CHEW TABLET PO SCH (09:00)
[2018-10-26] MEDS: SENOKOT S TAB PO SCH ×2 (09:05→21:02)
[2018-10-26 09:24] LABS: ERYTHROCYTE SEDIMENTATION RATE 11 mm/hr (0-30)
[2018-10-26 11:22] LABS: DRVV SCREEN 40.7 SEC
[2018-10-26 14:21] LABS: CSF TUBE# CELL CNT TUBE 4
[2018-10-26 14:22] LABS: APPEARANCE, CSF CLEAR (CLEAR); COLOR, CSF COLORLESS (COLORLESS); CSF TUBE# CELL CNT TUBE 1
[2018-10-26 14:39] LABS: CSF TUBE# GLU TUBE 2; CSF TUBE# TP TUBE 2; GLUCOSE CSF 73 MG/DL (40-75); TOTAL PROTEIN,CSF 87 MG/DL (15-45)
[2018-10-26] MEDS ORDERED: methylPREDNISolone 1,000 MG, VIAL MATE ADAPTER 1 EACH in D5W 250 ML IV ONE (15:45)
--- NOTE | 2018-10-26 16:20 | REP ---
MRA BRAIN WITHOUT CONTRAST: HISTORY: Infarction. 3D TOF MR angiography was performed at the level of the false pass of [place]. There is no aneurysm or arteriovenous malformation. Mild atherosclerotic disease involves the cavernous and supraclinoid internal carotid arteries, middle cerebral artery trifurcations, the proximal A2 segments of the anterior cerebral arteries, basilar artery and left superior cerebellar artery. Mild to moderate atherosclerotic disease involves the posterior cerebral arteries. Mild atherosclerotic disease involves the left superior cerebellar artery. 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 Major intracranial vessels are patent. The vertebral arteries are equal in size. IMPRESSION: 1. There is no aneurysm or arteriovenous malformation. 2. Atherosclerotic disease as described above. Electronically Signed by Vamshi Franco MD 10/26/2018 04:23 P
--- NOTE | 2018-10-26 16:24 | REP ---
MR BRAIN WITHOUT CONTRAST: HISTORY: Infarction. COMPARISON: CT 10/25/2018. Multiple punctate and small areas of increased signal intensity on diffusion and T2-weighted images are present in the parietal and temporal lobes, right frontal and right occipital lobes. These are decreased in signal intensity on ADC images and are consistent with acute infarctions. A punctate focus of increased signal intensity on diffusion weighted images is present in the posterior inferior right cerebellum. This may also represent an acute infarction. Areas of increased signal intensity are present in the periventricular and subcortical white matter. This represents small vessel ischemic disease. There is no intraparenchymal hemorrhage, mass or midline shift. The ventricular system is normal in appearance. There is no extracerebral collection. Mucosal thickening is present in the maxillary and left sphenoid sinuses. IMPRESSION: 1. There are multiple punctate and small acute infarctions in the cerebral hemispheres and a possible punctate infarction in the right cerebellum. There is no hemorrhage. 2. Minimal small vessel ischemic disease. Electronically Signed by Vamshi Franco MD 10/26/2018 04:30 P
[2018-10-26] MEDS: ATORVASTATIN 20 MG TAB PO SCH (21:02)
--- NOTE | 2018-10-26 21:40 | IPNPDOC ---
Text Note Date of Service The patient was seen on 10/26/18. NOTE S: Pt examined at bedside with in room. She is in better spirits today, and feeling close to her normal self. No events overnight. Her strength and sensation is equal and without deficits today. We are still awaiting open bed at [facility]. Per nursing, [facility] had implied it would be a while till there is room for Ms. Tolentino. Per neuro recommendations, pt underwent MRI & MRA of head after it was confirmed that her metal plate in back is indeed MR-safe. Imaging revealed bilateral strokes, multiple infarcts. She also underwent LP, revealing inflammation. She was recommended to continue on IV Solumedrol and continue seeking a transfer to [facility]. All results relayed to pt and and plan of care discussed. ROS: Denies f/c, blurred vision, eye/ear pain, ARCHER, n/v, slurred speech, cp, sob, dizziness, paresthesia. Admits to improved strength, equal on l & r PE: General: NAD, A&Ox3, fully conversant, resting comfy in bed HEENT: NCAT, PERRLA, EOMI, supple neck, moist mucous memb Cardiac: RRR, normal S1S2 Pulm: CTAB, equal chest rise Abd: soft, NT, ND, normoactive bs Neuro: no facial droop or tongue deviation, no ptosis, no tremor or f asciculations. 5/5 strength throughout, which is improved from previous days. Sensation to soft and sharp touch intact throughout and equal. No facial asymmetry. No slurred speech or confusion. Negative Babinski and no pronator drift. 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 Toney's DC Summary from 10/24/18 and above HPI for update. D/C has been delayed as we are currently awaiting transfer bed, but have an accepting physician at [facility]. * We reached out to [facility] again today. Unfortunately, no bed available, and they stated the #1 pt on their wait list has been on hold since Oct 14. Reached out to [facility] again as well today, but no bed either. High probability that pt has an underlying cerebral vasculitis, but will need further w/u with services not available here, including conventional cerebral angiogram. Of note, MR today reveals multiple infarcts throughout. Nonetheless, pt's symptoms have fully resolved as of today. She continues on ASA & statin. Hypercoagulable w/u pending. * Appreciate Neurology input. Per recommendations, will continue on IV Solumedrol, today is Day 3, and pt will not benefit from THERESA, thus we spoke with Dr. Hughes and have cancelled this. DVT ppx: heparin sc DISPO: awaiting transfer. VS,Fishbone, I+O VS, Fishbone, I+O Laboratory Tests 10/26/18 04:10 Red Blood Count 4.49, Mean Corpuscular Volume 82.6, Mean Corpuscular Hemoglobin 28.1, Mean Corpuscular Hemoglobin Concent 34.0, Red Cell Distribution Width 13.7, Neutrophils (%) (Auto) 75.5 H, Lymphocytes (%) (Auto) 15.2 L, Monocytes (%) (Auto) 8.9 H, Eosinophils (%) (Auto) 0.0, Basophils (%) (Auto) 0.1, Neutrophils # (Auto) 7.0, Lymphocytes # (Auto) 1.4 L, Monocytes # (Auto) 0.8, Eosinophils # (Auto) 0.0, Basophils # (Auto) 0.0, Calcium Level 8.7 Vital Signs Date Time Temp Pulse Resp B/P (MAP) Pulse Ox O2 Delivery O2 Flow Rate FiO2 10/26/18 16:00 97.7 73 16 133/70 (91) 98 10/23/18 18:00 Room Air I&O- Last 24 Hours up to 6 AM 10/26/18 06:00 Intake Total 720 ml Output Total 1300 ml Balance -580 ml GME ATTESTATION GME ATTESTATION My faculty preceptor for this patient encounter was physically present during the encounter and was fully available. All aspects of the patient interview, examination, medical decision making process, and medical care plan development were reviewed and approved by the faculty preceptor. The faculty preceptor is aware and concurs with the plan as stated in the body of this note and will attest to such by his/her cosignature. LINDA MENENDEZ DO Oct 26, 2018 21:40
[2018-10-27] VITALS: BP 125/62
[2018-10-27 04:00] VITALS: BP 172/82
[2018-10-27 05:14] LABS: EOS % 0.2 % (0.0-3.0); HEMATOCRIT 35.4 % (36.0-47.0); HEMOGLOBIN 12.1 g/dl (12.0-15.5); LYMPH # 0.7 10^3/uL (1.5-4.5); LYMPH % 11.4 % (24.0-44.0); MEAN CORPUSCULAR HEMOGLOBIN 28.2 pg (27.0-33.0); MEAN CORPUSCULAR HGB CONC 34.2 g/dl (32.0-36.5); MEAN CORPUSCULAR VOLUME 82.5 fl (80.0-96.0); MONO # 0.1 10^3/uL (0.0-0.8); MONO % 1.7 % (0.0-5.0); NEUTROPHILS # 5.5 10^3/uL (1.8-7.7); NEUTROPHILS % 86.4 % (36.0-66.0); PLATELET COUNT, AUTOMATED 287 10^3/uL (150-450); RED BLOOD COUNT 4.29 10^6/uL (4.00-5.40); WHITE BLOOD COUNT 6.3 10^3/uL (4.0-10.0)
[2018-10-27 05:15] LABS: BLOOD UREA NITROGEN 13 MG/DL (7-18); CALCIUM LEVEL 8.6 MG/DL (8.5-10.1); CARBON DIOXIDE LEVEL 29 MEQ/L (21-32); CHLORIDE LEVEL 102 MEQ/L (98-107); CREATININE FOR GFR 0.59 MG/DL (0.55-1.30); GLOMERULAR FILTRATION RATE > 60.0 (>51); GLUCOSE, FASTING 197 MG/DL (70-100); MAGNESIUM LEVEL 2.2 MG/DL (1.8-2.4); POTASSIUM SERUM 3.6 MEQ/L (3.5-5.1); SODIUM LEVEL 139 MEQ/L (136-145)
[2018-10-27] MEDS: HEPARIN SOD (PORCINE) 5000 UNITS/ML VIAL SC SCH ×2 (06:00→13:56)
[2018-10-27 08:00] VITALS: BP 143/64
[2018-10-27] MEDS: ASPIRIN 81 MG CHEW TABLET PO SCH (08:51)
[2018-10-27] MEDS: SENOKOT S TAB PO SCH (08:51)
--- NOTE | 2018-10-27 09:19 | REP ---
Procedure: Fluoro guidance for lumbar puncture. History: Headache, generalized weakness The procedure was performed under the direct supervision of Dr. Franco. The risks and benefits of the procedure were explained to the patient and informed consent was obtained. The L4-5 interspace was localized using fluoroscopic guidance. The skin was prepped and draped in a sterile fashion. 1% lidocaine was used as a local anesthetic. Using fluoroscopic guidance a 22-gauge spinal needle was inserted and advanced into the thecal sac. 12 ml of spinal fluid was withdrawn and sent to lab. The patient tolerated the procedure well and there were no immediate complications. Less than 6 seconds of fluoro time was utilized for this procedure. Reviewed by ANNEMARIE Knight 10/26/2018 04:56 P Electronically Signed by Curtis Solitario MD 10/27/2018 09:10 A
[2018-10-27] MEDS ORDERED: methylPREDNISolone INJ 125 MG/2 ML VIAL (J2930) IV SCH (12:00)
[2018-10-27] MEDS ORDERED: methylPREDNISolone 1,000 MG, VIAL MATE ADAPTER 1 EACH in D5W 250 ML IV SCH (12:00)
[2018-10-27 16:00] VITALS: BP 154/75
--- NOTE | 2018-10-27 22:10 | DS.PDOC ---
Discharge Summary General Date of Admission Oct 23, 2018 at 19:01 Date of Discharge transferred 10/27/18 Attending Physician: ZEYAD LYONS DO Specialist/Consultants Involve: POLY DE LOS SANTOS MD Discharge Summary PROCEDURES PERFORMED DURING STAY: None. DISCHARGE DIAGNOSES: 1. cerebral vasculitis, multifocal strokes 2. speech deficits 3. altered mental status SECONDARY DIAGNOSES 1. Prediabetes 2. HTN 3. Lower back pain s/p surgical intervention - [facility] COMPLICATIONS/CHIEF COMPLAINT: Generalized Weakness,Headache,Tia. HISTORY OF PRESENT ILLNESS: This is a 53 yo female with PMHx of prediabetes, HTN, headache and lower back pain s/p surgical intervention, who presented to the ED for left sided weakness. Her family at bedside state that she had been having intermittent focal deficits for the past 4-8 weeks, that have been worsening, initially starting with pins/needles and numbness in her extremities. Patient states she has been having headaches, and was taking ibuprofen in August when the headaches got worse. She was started on Topamax on 10/13/18, which she said still wasn't helping. Per patient her neurologist was gradually i ncreasing her topamax dose and it was doubled (200mg) on 10/20/18. Around 10/21/18 she started having right sided weakness with headache. The weakness gradually improved over the next 2 days; however her headaches got progressively worse and today she started having generalized weakness, so her brought her to the ED. She was given Toradol 30mg IV, reglan 10mg IV, Benadryl 25mgIV and a 1L bolus of NS and discharged home. When they got home, she started having left sided weakness and he thought she was having a stroke so he brought her back. Patient complained of weakness, lethargy and difficulty with speech. Of note patient was also taking prednisone taper and her last dose was 10/20/18. She was taking it for possible brain inflammation per . She denied fever ,chills, chest pain, sob, photophobia, present headache, nausea vomiting, dizziness or muscles aches. HOSPITAL COURSE: Hospital day one, patient noted with very flat affect. She answers questions with one word answers with no additional information. She is unable to read a clock. Patient's family (, son) state this is a major change in her mentation. She was found to be a poor historian. states that she was seen at [facility] 3-5 days ago for weakness and focal deficits. Neurology was consulted for further assistance. Started on ASA & high-intensity statin. CT angiography of the head showed irregular beaded appearance of the M1 segment of the left MCA, with differential including vasculitis. Recommendations by neurology for transfer for further diagnostics with conventional angiogram. [facility] was contacted, with no bed availability. [facility] contacted with no bed availability. [facility] accepted transfer to stroke unit, accepting MD Dr. Mirella Abdul, but did not have bed when called daily. Per neuro, pt underwent LP revealing increased WBCs, and pt was started on 1g Solumedrol, with much improvement. She was back to her normal strength without any deficits 1 day after started on steroids, and 3 days into the hospitalization. Vasculitic w/u pending, and TTE unrevealing. Still requires definitive diagnosis and tissue biopsy. Due to services not available here, and no bed availability at [facility], will be transferred to [facility] per pt request. At time of tx, pt has received 4 days of IV solumedrol. DISCHARGE MEDICATIONS: Please see below. ALLERGIES: Please see below. PHYSICAL EXAMINATION ON DISCHARGE: VITAL SIGNS: Please see below. General: NAD, A&Ox3, fully conversant, resting comfy in bed HEENT: NCAT, PERRLA, EOMI, supple neck, moist mucous memb Cardiac: RRR, normal S1S2 Pulm: CTAB, equal chest rise Abd: soft, NT, ND, normoactive bs Neuro: no facial droop or tongue deviation, no ptosis, no tremor or fasciculations. 5/5 strength throughout, which is improved from previous days. Sensation to soft and sharp touch intact throughout and equal. No facial asymmetry. No slurred speech or confusion. Negative Babinski and no pronator drift. 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 ACTIVITY: As tolerated. DIET: carb consistent, 2 gram sodium DISCHARGE PLAN: Transfer to [facility] ITEMS TO FOLLOWUP ON ON OUTPATIENT: 1. Further direction as per receiving facility. DISCHARGE CONDITION: Stable. TIME SPENT ON DISCHARGE: Greater than 30 minutes. Vital Signs/I&Os Vital Signs Date Time Temp Pulse Resp B/P (MAP) Pulse Ox O2 Delivery O2 Flow Rate FiO2 2/14/19 16:00 97.0 76 17 154/75 (101) 96 10/23/18 18:00 Room Air I&O- Last 24 Hours up to 6 AM 10/27/18 06:00 Intake Total 850 ml Output Total 1370 ml Balance -520 ml Laboratory Data Labs 24H Laboratory Tests 2 10/27/18 04:41: Immature Granulocyte % (Auto) 0.3, White Blood Count 6.3, Red Blood Count 4.29, Hemoglobin 12.1, Hematocrit 35.4L, Mean Corpuscular Volume 82.5, Mean C orpuscular Hemoglobin 28.2, Mean Corpuscular Hemoglobin Concent 34.2, Red Cell Distribution Width 13.6, Platelet Count 287, Neutrophils (%) (Auto) 86.4H, Lymphocytes (%) (Auto) 11.4L, Monocytes (%) (Auto) 1.7, Eosinophils (%) (Auto) 0.2, Basophils (%) (Auto) 0.0, Neutrophils # (Auto) 5.5, Lymphocytes # (Auto) 0.7L, Monocytes # (Auto) 0.1, Eosinophils # (Auto) 0.0, Basophils # (Auto) 0.0, Nucleated Red Blood Cells % (auto) 0.0, Anion Gap 8, Glomerular Filtration Rate > 60.0, Blood Urea Nitrogen 13, Creatinine 0.59, Sodium Level 139, Potassium Level 3.6, Chloride Level 102, Carbon Dioxide Level 29, Calcium Level 8.6, Magnesium Level 2.2 CBC/BMP Laboratory Tests 10/27/18 04:41 Red Blood Count 4.29, Mean Corpuscular Volume 82.5, Mean Corpuscular Hemoglobin 28.2, Mean Corpuscular Hemoglobin Concent 34.2, Red Cell Distribution Width 13.6, Neutrophils (%) (Auto) 86.4 H, Lymphocytes (%) (Auto) 11.4 L, Monocytes (%) (Auto) 1.7, Eosinophils (%) (Auto) 0.2, Basophils (%) (Auto) 0.0, Neutrophils # (Auto) 5.5, Lymphocytes # (Auto) 0.7 L, Monocytes # (Auto) 0.1, Eosinophils # (Auto) 0.0, Basophils # (Auto) 0.0, Calcium Level 8.6 Microbiology Microbiology 10/26/18 Gram Stain - Final, Resulted 10/26/18 CSF Culture, Resulted Pending 10/26/18 - Final, Complete Discharge Medications Scheduled Aspirin (Aspirin 81) 81 Mg Tab, 1 TAB PO DAILY for pain Atorvastatin Calcium (Atorvastatin Calcium) 10 Mg Tab, 10 MG PO QHS, (Reported) Citalopram Hydrobromide (Citalopram Hydrobromide) 40 Mg Tab, 40 MG PO DAILY, (Reported) Enalapril Maleate (Enalapril Maleate) 20 Mg Tab, 40 MG PO DAILY, (Reported) Magnesium (Magnesium) 250 Mg Tab, 250 MG PO DAILY, (Reported) Metformin Hydrochloride (Metformin HCl ER) 750 Mg Tab, 750 MG PO QHS, (Reported) Topiramate (Topiramate) 25 Mg Tab, 50 MG PO QHS, (Reported) Allergies Coded Allergies: Guaifenesin (Unverified Allergy, Unknown, HIVES, 10/23/18) GME ATTESTATION GME ATTESTATION My faculty preceptor for this patient encounter was physically present during the encounter and was fully available. All aspects of the patient interview, examination, medical decision making process, and medical care plan development were reviewed and approved by the faculty preceptor. The faculty preceptor is aware and concurs with the plan as stated in the body of this note and will attest to such by his/her cosignature. LINDA MENENDEZ DO Oct 27, 2018 22:10
[2018-10-28 00:08] LABS: ANCA-ATYPICAL <1:20 titer (Neg:<1:20); ANTI DOUBLE STRAND-DNA AB <1 IU/mL (0-9); ANTINUCLEAR ANTIBODIES DIRECT Negative (Negative); CARDIOLIPIN IGA ANTIBODY <9 APL U/mL (0-11); CARDIOLIPIN IGG ANTIBODY <9 GPL U/mL (0-14); CARDIOLIPIN IGM ANTIBODY 9 MPL U/mL (0-12); COMPLEMENT TOTAL (CH50) > 60 U/mL (>41); CYTOPLASMIC NEUTROP AB ANCA-C <1:20 titer (Neg:<1:20); HAPTOGLOBIN 226 mg/dL (34-200); HOMOCYST(E)INE SERUM 9.1 umol/L (0.0-15.0); PERINUCLEAR AB ANCA-P <1:20 titer (Neg:<1:20); SJOGREN'S ANTI SS-A <0.2 AI (0.0-0.9); SJOGREN'S ANTI SS-B <0.2 AI (0.0-0.9)
[2018-10-31 14:46] LABS: ANTI THROMBIN 3 ANTIGEN IMMUNO 92 % (72-124); ANTI THROMBIN 3 FUNCT ACTIVITY 120 % (75-135); PROTEIN C ANTIGEN 104 % (60-150); PROTEIN S ANTIGEN FREE 73 % (57-157); PROTEIN S ANTIGEN TOTAL 65 % (60-150)
== END 2018-10-27 17:48 | disposition short-term general hospital (02) | DRG 65 ==
LOC: M ED 15:32 → M ED INP 19:01 → M ICU 10-24 04:35
PROVIDERS: ADMIT Internal Medicine; ATTEND Internal Medicine
PROC: 009U3ZX Drainage of Spinal Canal, Percutaneous Approach, Diagnostic (ICD-10-PCS; principal; 2018-10-26)
DX: I63.9 Cerebral infarction, unspecified (principal); I67.7 Cerebral arteritis, not elsewhere classified; I10 Essential (primary) hypertension; F17.200 Nicotine dependence, unspecified, uncomplicated; Z79.899 Other long term (current) drug therapy; Z22.2 Carrier of diphtheria; M54.5 Low back pain

== ENCOUNTER → 2019-05-25 | Outpatient (REF) | payer OTHER ==
[~2019-05-25] MED LIST changes: +ASPI81TA26 PO; +MAGN250T7 PO; -METF750T PO; +METF750T36 PO
[2019-05-25 12:56] LABS: BASO % 0.4 % (0.0-1.0); EOS # 0.1 10^3/uL (0.0-0.5); EOS % 1.8 % (0.0-3.0); HEMATOCRIT 35.4 % (36.0-47.0); HEMOGLOBIN 11.3 g/dl (12.0-15.5); LYMPH % 14.8 % (24.0-44.0); MEAN CORPUSCULAR HEMOGLOBIN 27.8 pg (27.0-33.0); MEAN CORPUSCULAR HGB CONC 31.9 g/dl (32.0-36.5); MEAN CORPUSCULAR VOLUME 87.2 fl (80.0-96.0); MONO # 0.7 10^3/uL (0.0-0.8); MONO % 10.4 % (0.0-5.0); NEUTROPHILS # 5.1 10^3/uL (1.5-8.5); NEUTROPHILS % 71.7 % (36.0-66.0); PLATELET COUNT, AUTOMATED 260 10^3/uL (150-450); RED BLOOD COUNT 4.06 10^6/uL (4.00-5.40)
[2019-05-25 13:06] LABS: ALBUMIN 3.9 GM/DL (3.2-5.2); ALT/SGPT 23 U/L (12-78); BILIRUBIN,TOTAL 0.3 MG/DL (0.2-1.0); BLOOD UREA NITROGEN 14 MG/DL (7-18); CALCIUM LEVEL 9.1 MG/DL (8.5-10.1); CARBON DIOXIDE LEVEL 30 MEQ/L (21-32); CHLORIDE LEVEL 105 MEQ/L (98-107); CHOLESTEROL LEVEL 161 MG/DL (<200); CHOLESTEROL RISK RATIO 1.808 (<5); CPK CREATINE PHOSPHOKINASE 96 U/L (26-192); FREE T4 0.82 NG/DL (0.76-1.46); GLOMERULAR FILTRATION RATE > 60.0 (>51); GLUCOSE, FASTING 89 MG/DL (70-100); HDL CHOLESTEROL 89 MG/DL (>40); LDL CHOLESTEROL 59 MG/DL (<100); NON-HDL-C 72 MG/DL; POTASSIUM SERUM 4.2 MEQ/L (3.5-5.1); SODIUM LEVEL 144 MEQ/L (136-145); TOTAL PROTEIN 6.8 GM/DL (6.4-8.2); TRIGLYCERIDES LEVEL 65 MG/DL (<150)
[2019-05-25 13:21] LABS: HEMOGLOBIN A1c 5.9 %
[2019-05-25 13:32] LABS: ERYTHROCYTE SEDIMENTATION RATE 18 mm/hr (0-30)
== END ==
LOC: M SFHCPLAZ 09:41
PROVIDERS: ATTEND Physician Assistant Medical
DX: I77.6 Arteritis, unspecified (principal); E11.9 Type 2 diabetes mellitus without complications; F41.8 Other specified anxiety disorders; E78.49 Other hyperlipidemia

== ENCOUNTER → 2019-10-30 | Outpatient (CLI) | payer OTHER ==
--- NOTE | 2019-10-30 10:07 | REPMRS ---
Patient History The patient states she had a clinical breast exam in 08/2019. Patient is postmenopausal. No known family history of cancer. Benign FNA biopsy of the right breast, November 04, 2015. No Hormone Replacement Therapy Digital Woman Screen Mammo: October 30, 2019 - Exam #: [id number] Bilateral CC and MLO view(s) were taken. Technologist: Gloria Bellamy, Technologist Prior study comparison: January 01, 2018, bilateral screening 3D/tomosynthesis, performed at [facility]. September 27, 2015, bilateral screening 3D/tomosynthesis, performed at [facility]. FINDINGS: The breast tissue is almost entirely fat. The nodular density previously noted in the right breast medially is no longer apparent. There has been no change in the appearance of the mammogram from the prior studies. There is no interval development of dominant mass, architectural distortion, or grouped microcalcification typical of malignancy. 3-D tomosynthesis shows no additional findings. Assessment: BI-RADS/ACR category 1 mammogram. Negative Mammogram. Recommendation Routine screening mammogram of both breasts in 1 year (for women over age 40). This patient's Lifetime Breast Cancer RIsk is estimated at 8.3 %. This mammogram was interpreted with the aid of an FDA-approved computer-aided dectection system. Electronically Signed By: Eulogio Baum MD 10/30/19 [id number]
--- NOTE | 2019-10-31 13:12 | DEXA ---
AP SPINE L1 - L4 1.198 0.0 0.8 LT FEMUR TOTAL 0.927 -0.6 0.0 LT NECK 0.872 -1.2 -0.2 RT FEMUR TOTAL 0.956 -0.4 0.2 RT NECK 0.822 -1.6 -0.6 TOTAL BODY TOTAL OTHER COMMENTS: Normal bone densitometry of the spine. There is low bone density of the hips. FOLLOW-UP: Recommendation for the next bone density exam: 2 years. [facility]
== END ==
LOC: M WHC 08:17
PROVIDERS: ATTEND Physician Assistant Medical
DX: Z12.31 Encounter for screening mammogram for malignant neoplasm of breast (principal); M81.0 Age-related osteoporosis without current pathological fracture

== ENCOUNTER → 2020-01-24 | Outpatient (REF) | payer OTHER ==
[2020-01-24 10:23] LABS: CHOLESTEROL RISK RATIO 2.239 (<5)
[2020-01-24 10:30] LABS: TOTAL 25(OH) VITAMIN D 74.1 NG/ML (30.0-100.0)
[2020-01-24 10:43] LABS: HEMOGLOBIN A1c 6.2 %
== END ==
LOC: M SFHCPLAZ 08:14
PROVIDERS: ATTEND Physician Assistant Medical
DX: E78.49 Other hyperlipidemia (principal); E55.9 Vitamin D deficiency, unspecified

== ENCOUNTER → 2020-08-25 | Outpatient (CLI) | payer SELFPAY ==
[~2020-08-25] MED LIST changes: -ENAL20TA PO; +ENAL20TA11 PO
== END ==
LOC: M LABSMTC 08:06
PROVIDERS: ATTEND Pediatrics
DX: Z20.828 Contact with and (suspected) exposure to other viral communicable diseases (principal)

== ENCOUNTER → 2021-01-06 | Outpatient (REF) | payer OTHER ==
[2021-01-06 14:32] LABS: BASO % 0.3 % (0.0-1.0); EOS # 0.1 10^3/uL (0.0-0.5); EOS % 0.9 % (0.0-3.0); HEMATOCRIT 36.4 % (36.0-47.0); HEMOGLOBIN 11.4 g/dl (12.0-15.5); LYMPH # 1.5 10^3/uL (1.5-5.0); LYMPH % 22.9 % (24.0-44.0); MEAN CORPUSCULAR HEMOGLOBIN 26.8 pg (27.0-33.0); MEAN CORPUSCULAR HGB CONC 31.3 g/dl (32.0-36.5); MEAN CORPUSCULAR VOLUME 85.4 fl (80.0-96.0); MONO # 0.4 10^3/uL (0.0-0.8); MONO % 5.8 % (2.0-8.0); NEUTROPHILS # 4.7 10^3/uL (1.5-8.5); NEUTROPHILS % 69.7 % (36.0-66.0); PLATELET COUNT, AUTOMATED 284 10^3/uL (150-450); RED BLOOD COUNT 4.26 10^6/uL (4.00-5.40); WHITE BLOOD COUNT 6.7 10^3/uL (4.0-10.0)
[2021-01-06 14:54] LABS: HEMOGLOBIN A1c 5.4 %
[2021-01-06 15:06] LABS: CREATININE, URINE 86.2 MG/DL; MALB URINE SIEMENS 8.2 MG/L; MAU/CREAT RATIO 9.5 MCG/MG (0.0-30.0)
[2021-01-06 15:21] LABS: ALBUMIN 3.9 GM/DL (3.2-5.2); ALT/SGPT 16 U/L (12-78); BILIRUBIN,TOTAL 0.4 MG/DL (0.2-1.0); BLOOD UREA NITROGEN 9 MG/DL (7-18); CALCIUM LEVEL 9.5 MG/DL (8.5-10.1); CARBON DIOXIDE LEVEL 28 MEQ/L (21-32); CHLORIDE LEVEL 106 MEQ/L (98-107); CHOLESTEROL LEVEL 177 MG/DL (<200); CHOLESTEROL RISK RATIO 2.082 (<5); CREATININE FOR GFR 0.62 MG/DL (0.55-1.30); FREE T4 0.81 NG/DL (0.76-1.46); GLOMERULAR FILTRATION RATE > 60.0 (>51); GLUCOSE, FASTING 94 MG/DL (70-100); HDL CHOLESTEROL 85 MG/DL (>40); LDL CHOLESTEROL 72 MG/DL (<100); NON-HDL-C 92 MG/DL; POTASSIUM SERUM 4.3 MEQ/L (3.5-5.1); PTH INTACT 40.4 PG/ML (18.5-88.0); SODIUM LEVEL 139 MEQ/L (136-145); TOTAL 25(OH) VITAMIN D 79.7 NG/ML (30.0-100.0); TOTAL PROTEIN 6.5 GM/DL (6.4-8.2); TRIGLYCERIDES LEVEL 101 MG/DL (<150)
== END ==
LOC: M PLALAB 09:25
PROVIDERS: ATTEND Physician Assistant Medical
DX: I10 Essential (primary) hypertension (principal); E78.49 Other hyperlipidemia; F41.8 Other specified anxiety disorders; E11.9 Type 2 diabetes mellitus without complications; E55.9 Vitamin D deficiency, unspecified

== ENCOUNTER → 2022-01-30 | Outpatient (CLI) | payer OTHER ==
[~2022-01-30] MED LIST changes: -CITA40TA4 PO; +CITA40TA7 PO
== END ==
LOC: M LABSMTC 09:22
PROVIDERS: ATTEND Student in an Organized Health Care Education/Training Program
DX: Z01.812 Encounter for preprocedural laboratory examination (principal); Z20.822 Contact with and (suspected) exposure to COVID-19

== ENCOUNTER → 2022-06-02 | Outpatient (CLI) | payer OTHER ==
[~2022-06-02] MED LIST changes: +IRON27TA2 PO; +MYCO500T PO; +PANT40TA29 PO; +SPIR-10 PO; +VERA40TA PO; +VITA100T59 PO
== END ==
LOC: M ONCR 09:25
PROVIDERS: ATTEND General Practice
DX: C50.211 Malignant neoplasm of upper-inner quadrant of right female breast (principal); E11.9 Type 2 diabetes mellitus without complications; E78.5 Hyperlipidemia, unspecified; F17.210 Nicotine dependence, cigarettes, uncomplicated; F32.A Depression, unspecified; I10 Essential (primary) hypertension; K21.9 Gastro-esophageal reflux disease without esophagitis; Z79.82 Long term (current) use of aspirin; Z79.84 Long term (current) use of oral hypoglycemic drugs; Z79.899 Other long term (current) drug therapy; Z88.8 Allergy status to other drugs, medicaments and biological substances; Z92.21 Personal history of antineoplastic chemotherapy

== ENCOUNTER 2022-07-13 07:56 | Outpatient (RCR) | payer OTHER | END 2022-07-13 23:59 | disposition home or self-care (01) | LOC: M ONCR 07:56 | PROVIDERS: ATTEND General Practice | DX: C50.212 Malignant neoplasm of upper-inner quadrant of left female breast (principal) ==

== ENCOUNTER 2022-07-27 07:57 | Outpatient (RCR) | payer OTHER | END 2022-08-12 | LOC: M ONCR 07:57 | PROVIDERS: ATTEND General Practice | DX: C50.212 Malignant neoplasm of upper-inner quadrant of left female breast (principal) ==

== ENCOUNTER → 2023-02-05 | Outpatient (CLI) | payer OTHER ==
[~2023-02-05] MED LIST changes: +ENAL1TAB52 PO; -ENAL20TA11 PO
== END ==
LOC: M ONCR 07:46
PROVIDERS: ATTEND General Practice
DX: Z08 Encounter for follow-up examination after completed treatment for malignant neoplasm (principal); Z85.3 Personal history of malignant neoplasm of breast; Z98.890 Other specified postprocedural states; Z92.21 Personal history of antineoplastic chemotherapy; Z92.3 Personal history of irradiation; Z79.811 Long term (current) use of aromatase inhibitors; I89.0 Lymphedema, not elsewhere classified; F17.210 Nicotine dependence, cigarettes, uncomplicated; Z71.2 Person consulting for explanation of examination or test findings; Z79.899 Other long term (current) drug therapy

== ENCOUNTER 2023-04-01 08:24 | Outpatient (RCR) | payer OTHER | END 2023-04-12 | LOC: M PT 08:24 | PROVIDERS: ATTEND General Practice | DX: I89.0 Lymphedema, not elsewhere classified (principal); Z85.3 Personal history of malignant neoplasm of breast ==

== ENCOUNTER 2023-04-21 08:17 | Outpatient (RCR) | payer OTHER | END 2023-05-13 | LOC: M PT 08:17 | PROVIDERS: ATTEND General Practice | DX: I89.0 Lymphedema, not elsewhere classified (principal) ==

== ENCOUNTER 2023-11-03 08:55 | Outpatient (RCR) | payer OTHER | END 2023-11-11 | LOC: M PT 08:55 | PROVIDERS: ATTEND General Practice | DX: I89.0 Lymphedema, not elsewhere classified (principal) ==

== ENCOUNTER → 2024-02-04 | Outpatient (CLI) | payer OTHER | LOC: M ONCR 08:23 | PROVIDERS: ATTEND General Practice | DX: C50.912 Malignant neoplasm of unspecified site of left female breast (principal); F17.210 Nicotine dependence, cigarettes, uncomplicated; Z79.69 Long term (current) use of other immunomodulators and immunosuppressants; Z79.82 Long term (current) use of aspirin; Z79.84 Long term (current) use of oral hypoglycemic drugs; Z79.899 Other long term (current) drug therapy; Z92.21 Personal history of antineoplastic chemotherapy; Z92.3 Personal history of irradiation ==

== ENCOUNTER 2024-05-03 08:16 | Outpatient (RCR) | payer OTHER | END 2024-05-13 | LOC: M PT 08:16 | PROVIDERS: ATTEND General Practice | DX: I89.0 Lymphedema, not elsewhere classified (principal) ==

== ENCOUNTER → 2024-06-26 | Outpatient (REF) | payer OTHER | LOC: M LAB REF 11:58 | PROVIDERS: ATTEND Physician Assistant Medical | DX: R05.9 Cough, unspecified (principal) ==

== ENCOUNTER 2024-11-02 08:19 | Outpatient (RCR) | payer OTHER | END 2024-11-10 | LOC: M PT 08:19 | PROVIDERS: ATTEND General Practice | DX: I89.0 Lymphedema, not elsewhere classified (principal); C50.919 Malignant neoplasm of unspecified site of unspecified female breast ==

== ENCOUNTER → 2025-01-27 | Outpatient (REF) | payer OTHER ==
[~2025-01-27] MED LIST changes: +TOPI-256 PO; -TOPI25TA10 PO
== END ==
LOC: M LAB REF 09:05
PROVIDERS: ATTEND Physician Assistant
DX: B34.9 Viral infection, unspecified (principal)